=== PATIENT | male | born 2000 | race Caucasian/White ===

== ENCOUNTER 2021-12-27 02:30 | Emergency (ER) | payer OTHER ==
[2021-12-27 03:07] LABS: BASOPHIL 0.9 % (0-2); EOSINOPHIL 4.2 % (0-5); HCT 41.7 % (42.0-52.0); HGB 14.3 g/dl (13.2-18.0); LYMPHOCYTE 39.3 % (15-48); MCH 28.7 pg (25.0-31.0); MCHC 34.3 g/dL (32.0-36.0); MCV 83.6 fL (78.0-100.0); MONOCYTE 9.3 % (0-12); MPV 9.6 fL (6.0-9.5); NEUTROPHIL 46.1 % (41-80); NRBC 0; PLT 340 K/uL (150-400); RBC 4.99 M/uL (4.70-6.00); RDW 12.6 % (11.5-14.0)
[2021-12-27 03:29] LABS: ALBUMIN 4.2 g/dL (3.4-5.0); ALKALINE PHOSHATASE 89 U/L (46-116); ALT 41 U/L (16-63); AST 9 U/L (15-37); BILIRUBIN - TOTAL 0.5 mg/dL (0.2-1.0); BUN 13 mg/dL (7-18); BUN/CREAT RATIO (CALC) 12.6 RATIO; CHLORIDE 101 mmol/L (98-107); CO2 (BICARBONATE) 29 mmol/L (21-32); CREATININE 1.03 mg/dL (0.67-1.17); GLOBULIN (CALCULATION) 2.8 g/dL; GLUCOSE 107 mg/dL (74-106); POTASSIUM 3.4 mmol/L (3.5-5.1)
[2021-12-27 03:34] LABS: INR 0.99 (0.9-1.2); PROTHROMBIN TIME 12.8 SECONDS (11.9-13.9); PTT 29.7 SECONDS (24.9-34.6)
[2021-12-27 04:32] LABS: AMPHETAMINES NEGATIVE (NEGATIVE); BARBITURATES NEGATIVE (NEGATIVE); ECSTASY (MDMA) NEGATIVE (NEGATIVE); MARIJUANA (THC) NEGATIVE (NEGATIVE); METHADONE NEGATIVE (NEGATIVE); OPIATES NEGATIVE (NEGATIVE); OXYCODONE NEGATIVE (NEGATIVE)
[2021-12-27 04:58] LABS: CORONAVIRUS 2019 SARS-COV-2 NEGATIVE (NEGATIVE); INFLUENZA A NAA NEGATIVE (NEGATIVE)
== END 2021-12-27 05:32 | disposition home or self-care (01) ==
LOC: FER 02:30
PROVIDERS: Internal Medicine
DX: R07.89 Other chest pain (principal); J45.909 Unspecified asthma, uncomplicated; Z20.822 Contact with and (suspected) exposure to COVID-19
CPT/HCPCS: 36415; 71045; 80053; 80305; 84484; 85025; 85379; 85610; 85730; 93005; G0480; U0002